=== PATIENT | male | born 1970 | race Caucasian/White ===

== ENCOUNTER → 2016-05-15 | Outpatient (CLI) | payer BC ==
--- NOTE | 2016-05-15 14:29 | RADRPT ---
PROCEDURE: XR right knee. CLINICAL INDICATION: Knee pain TECHNIQUE: AP weightbearing, lateral weightbearing and sunrise views are available for review. COMPARISON: None available FINDINGS: There is mild narrowing of the medial tibial femoral compartment. The osseous structures are otherwi se normal in mineralization, architecture and alignment. No fractures are identified. No osseous l esions are identified. The soft tissues are unremarkable. IMPRESSION: Mild narrowing of the medial tibial femoral compartment (query osteoarthrosis) RPTAT: [facility] .Geronimo Hernandez MD, MD Date Time Electronically viewed and signed by .Geronimo Hernandez MD, on 05/15/2016 14:29 .B/
--- NOTE | 2016-05-16 07:13 | HKNOTE ---
DATE OF SERVICE: 05/15/2016 MAIN COMPLAINT: Pain and instability of the right knee. HISTORY OF MAIN COMPLAINT: The patient is a 46-year-old male who has had problems with his right kn ee for about 6 years. He has seen Dr. Dave, who has given him 3 cortisone injections into the kn ee without much improvement. The patient has decided to get another opinion. The last injection wa s 8 weeks ago. PRESENT COMPLAINTS: The pain in his right knee is localized to the medial side and posterior side. There is no radiation up or down the leg. Pain is described as being severe at times, mostly moder ate. Pain is aggravated by walking, running and stair climbing. The patient does get rest pain. H e is not getting night pain. He started taking tramadol and Advil. These have not given him any re lief. He does have a history of problems with his lower back. He has had back treatments by [facility] in the past. He does get tingling in his legs. The right knee occasionally feels unstable. This occurs about once a month. There is no swelling. The knee locks when he gets up from sitting. The knee "feels stiff like a board" on occasion, and then he has to fight it to it get moving. The knee also pops frequently. The knee swells much of t he time. He limps whenever he is in pain, which is when he walks without a walking aid. He does no t have a shoe lift. He can clip his toenails and tie his shoelaces. PAST ORTHOPEDIC HISTORY: PREVIOUS ORTHOPEDIC OPERATIONS: None. PRIOR CORTISONE INTAKE: Three injections of cortisone into his knee. ALCOHOL INTAKE: "Very little." OTHER JOINT PROBLEMS: None. BLOOD TESTS FOR ARTHRITIS: None. PRIOR INJURIES TO HIPS OR KNEES: "Not that I can remember." WORK STATUS: The patient works in [employer], where his work involves a great deal of physical activi ty. PAST MEDICAL HISTORY: Negative. PAST SURGICAL HISTORY: 1. 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 2. Surgery to his sinuses. ALLERGIES: NONE. MEDICATIONS: None. FAMILY HISTORY: Noncontributory. SYSTEMS REVIEW: Prone to headaches and heartburn. Tingling sensations in his right knee when he si ts for any length of time. Occasional double vision. He has passed a kidney stone. Chronic diarrh ea "sometimes." HABITS: The patient smoked "a long time ago." Alcohol intake minimal. 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 VITAL SIGNS: Height 5 feet. Weight 160 pounds. Blood pressure 115/65, temperature 98.4. HIPS: Both hips have full range of motion without pain. GAIT: Normal. RIGHT KNEE: The right knee shows normal alignment. Active and passive extension is limited and pain ful. Active and passive flexion is 135 degrees. The medial and lateral collateral ligaments and cruc iate ligaments are intact. Rosalee test is negative. There is 2+ effusion. Tender over the medial j oint line. There is no scarring, crepitus or cysts. The patella tracks normally. There is no tender ness on the articular surface of the patella or in the patellar groove. The Q angle is normal. IMAGING: Plain x-rays of the right knee obtained today show mild narrowing of the medial joint spac e. DISCUSSION: The patient has had problems with his right knee for about 6 years now. He has symptom s suggestive of an internal derangement. The patient is being sent for an MRI scan. DIAGNOSES: 1. Probable torn medial meniscus of the right knee. 2. Chronic dyspepsia (takes Nexium). 3. 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 4. Injured his lower back in "the time that his family went to [place]." MANAGEMENT: The patient being sent for an MRI scan of his ____ knee, and he will be called with the result. Dictated By: AHSAN ALMANZA/DOROTHY Conf#: [id number] DID#: [id number]
== END | disposition home or self-care (01) ==
LOC: HKI 14:13
DX: M25.561 Pain in right knee (principal); R10.13 Epigastric pain; Z89.112 Acquired absence of left hand
CPT/HCPCS: 73562; G0463

== ENCOUNTER → 2016-05-30 | Outpatient (CLI) | payer BC ==
[~2016-05-30] MED LIST: ESOM40CA PO
--- NOTE | 2016-05-30 20:23 | HKNOTE ---
DATE OF SERVICE: Patient comes in for a preoperative evaluation. He is scheduled to have operative arthroscopy on nm s right knee on 06/01/2016. He has been cleared for surgery by Dr. Junior Rosa. Numerous question s were asked and answered. The patient understands that the MRI scan has at least a 5% chance of se eing pathology that does not exist and also has a 5% chance of missing significant pathology. He lopez s all the classic symptoms of a torn meniscus, but the MRI scan has not reported a clearcut meniscal tear. Numerous questions were asked and answered. Postoperative course was discussed with him. Kristy hernandez that his brother is also scheduled to have an operative arthroscopy a week or so later. Dictated By: AHSAN ALMANZA/DOROTHY Conf#: [id number] DID#: [id number]
== END | disposition home or self-care (01) ==
LOC: HKI 13:27
DX: Z01.818 Encounter for other preprocedural examination (principal)
CPT/HCPCS: G0463

== ENCOUNTER 2016-06-01 05:25 | Day surgery (SDC) | END 2016-06-01 13:26 | disposition home or self-care (01) | DX: M23.200 Derangement of unspecified lateral meniscus due to old tear or injury, right knee (principal) | CPT/HCPCS: 29881; J0131; J1100; J1885; J2001; J2250; J2274; J2405; J2710; J2795; J3010; J3370; J7120 ==

== ENCOUNTER → 2016-06-05 | Outpatient (CLI) | payer BC ==
--- NOTE | 2016-06-05 14:21 | PN ---
Date/Time of Note Date/Time of Note DATE: 06/05/16 TIME: 14:15 Outpatient Progress Note Chief Complaint Status post right knee arthroscopy with partial lateral meniscectomy and removal of osteochondral defect. HPI 46-year-old male presents today for postoperative visit status post right knee arthroscopy with partial lateral meniscectomy and removal of osteochondral defect on 06/01/2016. Patient denies any pain complaints. He is partially weightbearing with assistance using crutches. Patient does have stiffness to the knee on flexion and extension. Denies any calf pain. Denies any chest pain , shortness of breath or chest tightness. No falls. Denies any complications to the wound. Review of Systems Const: No Fever, no chills, no Fatigue, normal appetite, no diaphoresis. Resp: No SOB, no wheezing, no chest pain. CV: No chest pain, no palpitaions, no HOOPER. Physical Exam Blood pressure 124/71, temperature 98.9, pulse is 76, respiratory rate is 12, height is 5 feet, weight is 155 pounds. General Appearance: well-developed, well-nourished, in no acute distress. Right knee: Mild swelling to the right knee. Wound sites are clean dry and intact. Patient experiences stiffness with flexion and extension of the knee. 10 lag from full extension. Patient able to flex actively up to 30. Pain with active flexion past 30. Normal sensory examination to light touch. No tenderness to palpation on exam today. Partial weightbearing with assistance using crutches. No calf pain/negative Homans sign. Allergies Coded Allergies: No Known Drug Allergies (Unverified Allergy, Unknown, 06/01/16) Assessment/Plan * Wound site cleaned and dressed change applied today. * Patient was shown arthroscopic pictures and provided a copy for himself. All questions answered regarding surgery. * Patient was advised to continue taking pain medications as needed with encouragement to continue improving range of motion in regards to flexion and extension of the knee. * Prescription for physical therapy provided today. Expect patient to initiate physical therapy after sutures are removed next week. * Follow-up 1 week for suture removal. Dr. Alvarez was present during examination and agrees with plan. Medications Home Meds Reported Medications Esomeprazole Mag Trihydrate (Nexium) 40 Mg Capsule., 44.6 MG PO DAILY, #30 CAP 06/01/16 THALIA LYON PA-C Jun 05, 2016 14:21
== END | disposition home or self-care (01) ==
LOC: HKI 13:33
DX: Z48.89 Encounter for other specified surgical aftercare (principal); S83.281D Other tear of lateral meniscus, current injury, right knee, subsequent encounter

== ENCOUNTER → 2016-06-12 | Outpatient (CLI) | payer BC ==
--- NOTE | 2016-06-12 14:49 | PN ---
Date/Time of Note Date/Time of Note DATE: 06/12/16 TIME: 14:38 Outpatient Progress Note Chief Complaint 10 days status post right knee arthroscopy with partial lateral meniscectomy. Also status post removal of osteochondral fragment from the tibial plateau. HPI 46-year-old male presents today 10 days postop right knee arthroscopy with partial lateral meniscectomy and removal of osteochondral fragment to the tibial plateau. Patient denies any pain complaints to the right knee. Patient continues to improve status post surgery. He does continue with residual stiffness in regards to extension lag and limited flexion status post surgery. Denies any falls since he was last seen. Denies any calf pain. Denies any fever, chills or malaise. Patient states that he is very pleased status post surgery. Review of Systems Const: No Fever, no chills, no Fatigue, normal appetite, no diaphoresis. Resp: No SOB, no wheezing, no chest pain. CV: No chest pain, no palpitaions, no HOOPER. Physical Exam Blood pressure 124/80, temperature 98.7, pulse 89, respiratory rate 12, height 5 feet, weight 155 pounds General Appearance: well-developed, well-nourished, in no acute distress. Right knee: Gait showing slight limp. No antalgic gait on exam. Patient is able to flex up to 110 actively. 15 lag from full extension. Discomfort with passive range of motion with flexion and extension past his maximum active range of motion achieved. No tenderness to palpation to the knee. Noted moderate edema to the right knee. No calf pain/negative Homans sign. Normal sensory examination to light touch. Allergies Coded Allergies: No Known Drug Allergies (Unverified Allergy, Unknown, 06/01/16) Assessment/Plan * Joint aspiration performed today. 4 cc of 1% lidocaine used to numb up the superior lateral region of the right knee. After local anesthesia was achieved , 18-gauge needle used to perform joint aspiration after area was cleaned and sterilized with alcohol. 38 cc extracted. Patient does report improved pain after procedure. Patient was observed for 5-10 minutes status post joint aspiration before discharge. * Repeat prescription for physical therapy provided today as patient is not in possession a prescription given to him at last visit. * Anti-inflammatories as needed. * Suture removal was performed today with application of Steri-Strips. * At home physical therapy discussed in detail with patient today especially with focus on active range of motion regards to flexion and achieving full extension. * Patient may follow-up as needed. Patient was reminded that should he experience any complications or issues that should come up, he may call in the office and schedule appointment and he states understanding and compliance. Patient seen with Dr. Alvarez today. Dr. Alvarez agrees with plan. Medications Home Meds Reported Medications Esomeprazole Mag Trihydrate (Nexium) 40 Mg Capsule., 44.6 MG PO DAILY, #30 CAP 06/01/16 THALIA LYON PA-C Jun 12, 2016 14:49
== END | disposition home or self-care (01) ==
LOC: HKI 13:35
DX: Z47.89 Encounter for other orthopedic aftercare (principal); S83.281D Other tear of lateral meniscus, current injury, right knee, subsequent encounter

== ENCOUNTER → 2016-07-11 | Outpatient (CLI) | payer BC ==
--- NOTE | 2016-07-11 15:08 | PN ---
Date/Time of Note Date/Time of Note DATE: 07/11/16 TIME: 15:04 Outpatient Progress Note Chief Complaint Follow-up for right knee pain status post arthroscopy. HPI 46-year-old male presents today for follow-up regarding right knee pain. Patient is status post right knee arthroscopy with subtotal lateral meniscectomy and removal of osteochondral fragment from the tibial plateau. Patient states that his pain continues to improve but he continues with edema. He still experiences mild pain, usually with activity. Patient is nearing completion of physical therapy sessions. Denies any falls. Denies any severe pain complaints. Knee fluctuates between edema but now is typically mild to moderate. Patient has had aspiration about 2 weeks ago. Patient also experiences feeling of fluid to the posterior knee. Review of Systems Const: No Fever, no chills, no Fatigue, normal appetite, no diaphoresis. Resp: No SOB, no wheezing, no chest pain. CV: No chest pain, no palpitaions, no HOOPER. Physical Exam Blood pressure 124/73, temperature is 98.3, pulse is 79, respiratory rate is 12. Height is 5 feet. Weight is 155 pounds. General Appearance: well-developed, well-nourished, in no acute distress. Right knee: Kinesiology tape to the anterior knee. No obvious abnormalities on inspection. Surgical wounds are well-healed. No tenderness to palpation to the right knee today. Mild to moderate edema. Patient is able to extend with about 5 lag from full extension. Patient is able to flex up to 110. Normal strength on resistance with flexion/extension. Normal sensory examination to light touch. No palpable Chester's cyst on exam today. Toes freely movable. No calf pain/negative Homans sign. Allergies Coded Allergies: No Known Drug Allergies (Unverified Allergy, Unknown, 06/01/16) Assessment/Plan * Mild edema on exam today. Do not recommend joint aspiration. * Close monitoring was recommended and discussed with patient in detail. Continue with physical therapy as well. Continue at home exercises as well. Should edema continue especially if he has increase in pain as well, possible repeat joint aspiration versus cortisone injection. * Patient does state however, that he continues to improve as his pain is gradually decreasing. Supportive measures such as anti-inflammatories, ice modalities, compression wrap things such as an Jarvis wrap for additional support. Keeping leg elevated when at rest discussed with patient today. * Follow-up as needed. Medications Home Meds Reported Medications Esomeprazole Mag Trihydrate (Nexium) 40 Mg Capsule., 44.6 MG PO DAILY, #30 CAP 06/01/16 THALIA LYON PA-C Jul 11, 2016 15:08
== END | disposition home or self-care (01) ==
LOC: HKI 14:26
DX: M25.561 Pain in right knee (principal)